=== PATIENT | male | born 1965 | race Caucasian/White ===

== ENCOUNTER 2016-12-21 08:49 | Emergency (ER) | payer OTHER ==
[~2016-12-21] VITALS: Ht 170.2 cm; Wt 79.4 kg
[~2016-12-21 08:49] MED LIST: CHOL20001 PO; DOLU50TA PO; FERR325E14 PO; OMEG1SGL6 PO
[2016-12-21 08:53] VITALS: BP 152/103
--- NOTE | 2016-12-21 09:00 | NUR ---
PATIENT AMBULATED TO ER BED 7.
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
--- NOTE | 2016-12-21 09:02 | NUR ---
Patient being evaluated by physician at bedside.
[2016-12-21] MEDS ORDERED: NACL 0.9% 1,000 ML IV ONE (09:05)
[2016-12-21] MEDS ORDERED: CIPROFLOXACIN 250 MG TAB PO ONE (09:10)
[2016-12-21 09:22] LABS: BASOPHILS # (AUTO) 0.2 K/uL (0.00-0.22); BASOPHILS % (AUTO) 2.1 % (0.0-2.0); EOSINOPHILS # (AUTO) 0.5 K/uL (0-0.4); EOSINOPHILS % (AUTO) 5.3 % (0.0-4.0); HEMATOCRIT 47.1 % (36-52); LYMPHOCYTES # (AUTO) 1.7 K/uL (2.0-11.5); LYMPHOCYTES % (AUTO) 20.2 % (20.5-51.1); MEAN CORPUSCULAR HEMOGLOBIN 31 pg (27-31); MEAN CORPUSCULAR HGB CONC 34 g/dL (33-37); MEAN CORPUSCULAR VOLUME 91 fL (80-94); MONOCYTES # (AUTO) 0.6 K/uL (0.8-1.0); MONOCYTES % (AUTO) 7.5 % (1.7-9.3); NEUTROPHILS # (AUTO) 5.6 K/uL (1.8-7.7); NEUTROPHILS % (AUTO) 64.9 % (42.2-75.2); PLATELET COUNT (AUTO) 333 K/uL (140-450); RED BLOOD CELL COUNT(AUTO) 5.19 MIL/uL (4.20-6.10); RED CELL DISTRIBUTION WIDTH 12.9 % (11.6-13.7); WHITE BLOOD COUNT (AUTO) 8.6 K/uL (4.8-10.8)
[2016-12-21 09:39] LABS: ALBUMIN 4.3 g/dL (3.4-5.0); ANION GAP 12.7 (8-16); CALCIUM 9.4 mg/dL (8.5-10.1); CARBON DIOXIDE 28.3 mmol/L (21-32); CREATININE 1.1 mg/dL (0.6-1.3); TOTAL BILIRUBIN 0.5 mg/dL (0.0-1.0); TOTAL PROTEIN, SERUM 8.3 g/dL (6.4-8.2)
--- NOTE | 2016-12-21 10:00 | NUR ---
IV removed, catheter intact and site benign. Applied folded 4x4 gauze and tape to stop bleeding. PT TOLERATED PROCEDURE WELL.
[2016-12-21 10:02] VITALS: BP 127/80
--- NOTE | 2016-12-21 10:02 | NUR ---
Patient discharged with v/s stable. Written and verbal after care instructions given and explained. Patient alert, oriented and verbalized understanding of instructions. Ambulatory with steady gait. All questions addressed prior to discharge. ID band removed. Patient advised to follow up with PMD. Rx of BENTYL 20MG TAB given. Patient educated on indication of medication including possible reaction and side effects. Opportunity to ask questions provided and answered.
== END 2016-12-21 10:02 | disposition home or self-care (01) ==
LOC: MED 08:49
DX: K52.9 Noninfective gastroenteritis and colitis, unspecified (principal); R19.7 Diarrhea, unspecified
CPT/HCPCS: 36415; 80053; 83690; 85025; 87040; 96360; 99284; J7030

== ENCOUNTER 2016-12-23 10:46 | Emergency (ER) | payer OTHER ==
[~2016-12-23] VITALS: Ht 167.6 cm; Wt 81.2 kg
[~2016-12-23 10:46] MED LIST changes: +CEPHALEXIN500 M2 PO; -CHOL20001 PO; -DOLU50TA PO; -FERR325E14 PO; +FERROUS SULFAT325 M3 PO; +LOVAZA1 GM PO; -OMEG1SGL6 PO; +TIVICAY50 MG PO; +VITAMIN D2000 I1 PO
[2016-12-23 10:56] VITALS: BP 134/83
--- NOTE | 2016-12-23 11:50 | NUR ---
Patient to bed 3.
--- NOTE | 2016-12-23 11:54 | NUR ---
51/M BIB SELF c/o watery stools x 1 wk ; 4 episodes today. was seen in our ER x2 days ago for same complaint, hx HIV. PT DENIES N/V SKIN IS PINK/WARM/DRY; AAOX4 WITH EVEN AND STEADY GAIT; LUNGS CLEAR BL; HR EVEN AND REGULAR; PT DENIES ANY FEVER, CP, SOB, OR COUGH AT THIS TIME; PATIENT STATES PAIN OF 8/10 AT THIS TIME; VSS; PATIENT POSITIONED FOR COMFORT; HOB ELEVATED; BEDRAILS UP X2; BED DOWN. ER MD MADE AWARE OF PT STATUS.
[2016-12-23 13:26] VITALS: BP 124/71
--- NOTE | 2016-12-23 13:26 | NUR ---
Patient discharged with v/s stable. Written and verbal after care instructions given and explained. Patient alert, oriented and verbalized understanding of instructions. Ambulatory with steady gait. All questions addressed prior to discharge. ID band removed. Patient advised to follow up with PMD. Rx of IMODIUM& CIPRO given. Patient educated on indication of medication including possible reaction and side effects. Opportunity to ask questions provided and answered.
== END 2016-12-23 13:26 | disposition home or self-care (01) ==
LOC: MED 10:46
DX: R19.7 Diarrhea, unspecified (principal); R10.13 Epigastric pain

== ENCOUNTER 2021-01-26 18:06 | Emergency (ER) | payer OTHER ==
[~2021-01-26] VITALS: Ht 165.1 cm; Wt 79.4 kg
[~2021-01-26 18:06] MED LIST changes: -CEPHALEXIN500 M2 PO; +CHOL20001 PO; +DOLU50TA PO; +FERR325E14 PO; -FERROUS SULFAT325 M3 PO; -LOVAZA1 GM PO; +OMEG1SGL6 PO; -TIVICAY50 MG PO; -VITAMIN D2000 I1 PO
[2021-01-26 18:15] VITALS: BP 143/80
--- NOTE | 2021-01-26 18:15 | NUR ---
Patient ambulated to bed 8.
--- NOTE | 2021-01-26 18:18 | NUR ---
55 YEAR OLD MALE COMPLAINS OF BUG BITE X 1 YEAR AGO. PT STATES HE HAS NEVER HAD IT SEEN AND HAS NOT GONE AWAY. SITE IS RED AND WITH PUS. PT ALSO STATES ASSOCIATED WITH LOWER BACK PAIN AND UPPER ABDOMINAL PAIN. PT DENIES N/V/D. PT AOX4, BREATHING EVEN AND UNLABORED, SKIN WARM AND DRY. BED IN LOWEST POSITION, LOCKED, BED RAIL UPX1. PMH - DENIES ALLERGIES - NKA
[2021-01-26] MEDS ORDERED: ACYC-278 PO (18:35)
[2021-01-26] MEDS ORDERED: MUPI2CRE22 TP (18:36)
[2021-01-26 19:00] VITALS: BP 143/80
--- NOTE | 2021-01-26 19:00 | NUR ---
Patient discharged with v/s stable. Written and verbal after care instructions about shingles given and explained. Patient alert, oriented and verbalized understanding of instructions. Ambulatory with steady gait. All questions addressed prior to discharge. ID band removed. Patient advised to follow up with PMD. Rx of acyclovir, mupirocin given. Patient educated on indication of medication including possible reaction and side effects. Opportunity to ask questions provided and answered.
== END 2021-01-26 19:00 | disposition home or self-care (01) ==
LOC: MED 18:06
DX: B02.9 Zoster without complications (principal); Z79.899 Other long term (current) drug therapy
CPT/HCPCS: 99283